=== PATIENT | male | born 1955 | race African-American/Black ===

== ENCOUNTER 2017-03-05 10:46 | Inpatient (IN) | payer OTHER ==
[2017-03-05 10:56] VITALS: BMI 22.9
--- NOTE | 2017-03-05 12:09 | HP ---
COWS - Scale Resting Pulse: 0= [place] 80 or Below Sweatin= Chills/Flushing Restless Observation: 1= Difficult to Sit Still Pupil Size: 0= Normal to Room Light Bone or Joint Aches: 1= Mild Discomfort Runny Nose/ Eye Tearin= Nasal Congestion GI Upset > 30mins: 1= Stomach Cramp Tremor Observation: 1= Tremor [place], Not Seen Yawning Observation: 1= 1-2x During Session Anxiety or Irritability: 1=Feels Anxious/Irritable Goose Flesh Skin: 0=Smooth Skin COWS Score: 8 Admission ROS S - HPI Chief Complaint: I want to get clean, I tried methadone but I didn't follow through and went back to heroin. Allergies/Adverse Reactions: Allergies Allergy/AdvReac Type Severity Reaction Status Date / Time No Known Allergies Allergy Verified 03/05/17 12:04 History of Present Illness: 61 yo gentleman here for detox from heroin. First time in detox. No seizures. States he used to use heroin 30 years ago then moved to [place] and stopped but came to [place] and relapsed. States he is a [place] survivor. Exam Limitations: Clinical Condition - Ebola screening Have you traveled outside of the country in the last 21 days: No Have you had contact with anyone from an Ebola affected area: No Have you been sick,other than usual withdrawal symptoms: No Do you have a fever: No - Review of Systems Constitutional: Chills, Loss of Appetite, Night Sweats, Changes in sleep, Weakness EENT: reports: Nose Congestion Respiratory: reports: No Symptoms reported Cardiac: reports: No Symptoms Reported GI: reports: Poor Appetite, Abdominal cramping : reports: Dysuria Integumentary: reports: No Symptoms Reported Neuro: reports: Headache Endocrine: reports: No Symptoms Reported Hematology: reports: No Symptoms Reported Psychiatric: reports: Judgement Intact, Mood/Affect Appropiate Other Systems: Reviewed and Negative Patient History - Patient Medical History Hx Anemia: No Hx Asthma: No Hx Chronic Obstructive Pulmonary Disease (COPD): Yes Hx Cancer: No Hx Cardiac Disorders: No Hx Congestive Heart Failure: No Hx Hypertension: Yes (on meds) HX Cerebrovascular Accident: No Hx Seizures: No Hx Dementia: No Hx Diabetes: No Hx Gastrointestinal Disorders: No Hx Liver Disease: No Hx Genitourinary Disorders: No Hx Sexually Transmitted Disorders: Yes (many years ago - got PCN) Hx Renal Disease (ESRD): No Hx Thyroid Disease: No Hx Human Immunodeficiency Virus (HIV): No Hx Hepatitis C: No (not sure - told he had it, then that he didn't have it) Hx Depression: Yes (no treatment, no hospitalizations) Hx Suicide Attempt: No Hx Bipolar Disorder: No Hx Schizophrenia: No Other Medical History: low back pain from work injury - Patient Surgical History Past Surgical History: No - PPD History Previous Implant?: Yes Documented Results: Negative w/o proof Implanted On Prior [facility] Admission?: No PPD to be Administered?: Yes - Reproductive History Patient is a Female of Child Bearing Age (11 -55 yrs old): No (male) - Smoking Cessation Smoking history: Current every day smoker Have you smoked in the past 12 months: Yes Aproximately how many cigarettes per day: 3 Initiated information on smoking cessation: Yes 'Breaking Loose' booklet given: 03/05/17 (give on floor) - Substance & Tx. History Hx Alcohol Use: No Hx Substance Use: Yes Substance Use Type: Heroin Hx Substance Use Treatment: Yes (detox, tried mmtp) - Substances Abused Heroin Route: Inhalation Frequency: Daily Amount used: 4 bags Age of first use: 16 Date of Last Use: 03/04/17 Family Disease History - Family Disease History Family Disease History: Heart Disease: Mother (alive), CA: Father ( - ) , Respiratory: Sister (3 sisters - one ), Other: Father, Mother, Brother (9 bro - 4 (cva,hiv,etoh),), Daughter (psychiatric PTSD) Admission Physical Exam [facility] - Vital Signs Vital Signs: Vital Signs - 24 hr 03/05/17 10:48 Temperature 96.4 F L Pulse Rate 71 Respiratory 18 Rate Blood Pressure 147/78 - Physical General Appearance: Yes: Nourished, Appropriately Dressed, Mild Distress, Thin, Anxious HEENTM: Yes: Hearing grossly Normal, Normocephalic, Normal Voice, Other ( missing teeth,poor dentition) Respiratory: Yes: No Respiratory Distress Neck: Yes: No masses,lesions,Nodules, Supple Breast: Yes: Breast Exam Deferred Cardiology: Yes: Regular Rhythm, Regular Rate Abdominal: Yes: Soft Genitourinary: Yes: Hesitency Back: Yes: Normal Inspection Musculoskeletal: Yes: full range of Motion, Gait Steady, Back pain Extremities: Yes: Normal Inspection, Normal Range of Motion Neurological: Yes: Fully Oriented, Alert, Normal Mood/Affect, Normal Response Integumentary: Yes: Normal Color, Warm, Track [place] Lymphatic: Yes: Within Normal Limits - Diagnostic (1) COPD (chronic obstructive pulmonary disease) Current Visit: Yes Status: Chronic Qualifiers: COPD type: emphysema Emphysema type: unspecified Qualified Code( s): J43.9 - Emphysema, unspecified (2) HTN (hypertension) Current Visit: Yes Status: Chronic Qualifiers: Hypertension type: essential hypertension Qualified Code(s): I10 - Essential (primary) hypertension (3) Low back pain Current Visit: Yes Status: Chronic Qualifiers: Chronicity: chronic Sciatica presence: unspecified whether sciatica present (4) Nicotine dependence Current Visit: Yes Status: Chronic Qualifiers: Nicotine product type: cigarettes Substance use status: uncomplicated Qualified Code(s): F17.210 - Nicotine dependence, cigarettes, uncomplicated (5) Syphilis contact, treated Current Visit: Yes Status: Chronic Comment: treated many years ago (6) Uncomplicated opioid dependence Current Visit: Yes Status: Chronic Cleared for Admission [facility] - Detox or Rehab [facility] Level of Care: Medically Managed Detox Regimen/Protocol: Methadone [facility] Breath Alcohol Content Breath Alcohol Content: 0 Urine Drug Screen - Results Drug Screen Negative: No Urine Drug Screen Results: OPI-Opiates
[2017-03-05] MEDS ORDERED: LOPERAMIDE HCL 2 MG CAPSULE PO PRN (12:19)
[2017-03-05] MEDS ORDERED: MAGNESIUM HYDROX 2400MG/30ML ORAL SUSPENSION 30 ML CUP PO PRN (12:19)
[2017-03-05] MEDS ORDERED: guaiFENesin/D-METHORPHAN HB 10 ML UNIT-DOSE CUPS PO PRN (12:19)
[2017-03-05] MEDS ORDERED: MAG HYDROX/AL HYDROX/SIMETH 30 ML UNIT-DOSE CUP PO PRN (12:19)
[2017-03-05] MEDS ORDERED: P-EPHED 60MG/TRIPROLIDI 2.5MG TABLET PO PRN (12:19)
[2017-03-05] MEDS ORDERED: MAGNESIUM CITRATE 300 ML BOTTLE PO PRN (12:19)
[2017-03-05] MEDS ORDERED: MENTHOL/PHENOL 1 EACH UD MM PRN (12:19)
[2017-03-05] MEDS ORDERED: ACETAMINOPHEN 325 MG TABLET (FP) PO PRN (12:19)
[2017-03-05] MEDS ORDERED: ALBUTEROL SO4 6.7 GM HFA INHALER IH PRN (12:21)
[2017-03-05] MEDS ORDERED: METHADONE HCL 10 MG TABLET (FOR DETOX USE ONLY) PO ONE ×2 (13:00→23:00)
[2017-03-05] MEDS: diazePAM 5 MG TABLET PO PRN ×2 (14:38→22:17)
[2017-03-05 18:38] LABS: URINE APPEARANCE CLEAR; URINE BILIRUBIN NEGATIVE (NEGATIVE); URINE BLOOD NEGATIVE (NEGATIVE); URINE COLOR LTYELLOW; URINE GLUCOSE (UA) NEGATIVE (NEGATIVE); URINE KETONE NEGATIVE (NEGATIVE); URINE LEUK ESTERASE NEGATIVE (NEGATIVE); URINE NITRITE NEGATIVE (NEGATIVE); URINE PROTEIN NEGATIVE (NEGATIVE); URINE UROBILINOGEN NEGATIVE E.U./dl (0.2-1.0)
[2017-03-05] MEDS: THIAMINE HCL 100 MG TABLET (FP) PO SCH (22:16)
[2017-03-05] MEDS: diphenhydrAMINE HCL 50 MG CAPSULE PO PRN (22:18)
[2017-03-06] MEDS: diazePAM 5 MG TABLET PO PRN ×3 (05:33→17:17)
[2017-03-06 09:23] LABS: MCH 31.4 pg (25.7-33.7); MCHC 33.9 g/dl (32.0-35.9); MEAN CELL VOLUME 92.6 fl (80-96); MEAN PLT VOLUME 9.5 fl (7.5-11.1); PLATELET COUNT 149 K/MM3 (134-434); RDW 13.7 % (11.9-15.9)
[2017-03-06 09:30] LABS: ALBUMIN 3.1 g/dl (3.4-5.0); ANION GAP 9 (8-16); CALCIUM 8.4 mg/dL (8.5-10.1); CO2 27 mmol/L (21-32); GLUCOSE,RANDOM 84 mg/dL (74-106)
[2017-03-06 09:35] LABS: ALK PHOS 117 U/L (45-117); BILIRUBIN,TOTAL 0.3 mg/dL (0.2-1.0); COCKROFT - GAULT 98.27; CREATININE 0.8 mg/dL (0.7-1.3); SGOT/AST 47 U/L (15-37); SGPT/ALT 47 U/L (12-78); TOT PROT 6.9 g/dl (6.4-8.2)
[2017-03-06 09:47] LABS: SICKLE CELL SCREEN NEGATIVE (NEGATIVE)
[2017-03-06] MEDS ORDERED: METHADONE HCL 10 MG TABLET (FOR DETOX USE ONLY) PO ONE (10:00)
[2017-03-06] MEDS: PRENATAL VITAMINS W/ FOLIC ACID TABLET (FP) PO SCH (10:09)
[2017-03-06] MEDS: NICOTINE 7 MG/24 HOURS TOPICAL PATCH TD SCH (10:09)
[2017-03-06] MEDS: NICOTINE POLACRILEX 2 MG GUM BC PRN ×2 (10:12→17:17)
[2017-03-06] MEDS: LISINOPRIL 10 MG TABLET (FP) PO SCH (10:12)
[2017-03-06 11:26] LABS: HIV 1 & 2 AB NEGATIVE; HIV 1 AGp24 NEGATIVE
--- NOTE | 2017-03-06 12:37 | PN ---
S COWS - Scale Resting Pulse: 0= [place] 80 or Below Sweatin=Flushed/Facial Moisture Restless Observation: 1= Difficult to Sit Still Pupil Size: 0= Normal to Room Light Bone or Joint Aches: 2= Severe Diffuse Aches Runny Nose/ Eye Tearin= Runny Nose/Eyes GI Upset > 30mins: 2= Nausea/Diarrhea Tremor Observation of Outstretched Hands: 2= Slight Tremor Visible Yawning Observation: 1= 1-2x During Session Anxiety or Irritability: 2=Irritable/Anxious Goose Flesh Skin: 0=Smooth Skin COWS Score: 14 S Progress Note (SOAP) Subjective: Anxiety,tremors,sweating,interrupted sleep,restless Objective: 03/06/17 12:36 Vital Signs - 8 hr 03/06/17 03/06/17 06:44 09:50 Temperature 95.2 F L 97.1 F L Pulse Rate 75 73 Respiratory 18 18 Rate Blood Pressure 132/78 152/82 Laboratory Tests 03/05/17 03/06/17 03/06/17 18:10 07:30 07:30 WBC 5.0 RBC 3.94 L Hgb 12.4 Hct 36.5 MCV 92.6 MCHC 33.9 RDW 13.7 Plt Count 149 MPV 9.5 Sickle Cell Screen Negative Sodium 141 Potassium 3.9 Chloride 105 Carbon Dioxide 27 Anion Gap 9 BUN 7 Creatinine 0.8 Creat Clearance w eGFR > 60 Random Glucose 84 Calcium 8.4 L Total Bilirubin 0.3 AST 47 H ALT 47 Alkaline Phosphatase 117 Total Protein 6.9 Albumin 3.1 L Urine Color Ltyellow Urine Appearance Clear Urine pH 5.0 Ur Specific [place] 1.014 Urine Protein Negative Urine Glucose (UA) Negative Urine Ketones Negative Urine Blood Negative Urine Nitrite Negative Urine Bilirubin Negative Urine Urobilinogen Negative Ur Leukocyte Esterase Negative RPR Titer HIV 1&2 Antibody Screen HIV P24 Antigen 03/06/17 03/06/17 07:30 07:30 WBC RBC Hgb Hct MCV MCHC RDW Plt Count MPV Sickle Cell Screen Sodium Potassium Chloride Carbon Dioxide Anion Gap BUN Creatinine Creat Clearance w eGFR Random Glucose Calcium Total Bilirubin AST ALT Alkaline Phosphatase Total Protein Albumin Urine Color Urine Appearance Urine pH Ur Specific [place] Urine Protein Urine Glucose (UA) Urine Ketones Urine Blood Urine Nitrite Urine Bilirubin Urine Urobilinogen Ur Leukocyte Esterase RPR Titer Nonreactive HIV 1&2 Antibody Screen Negative HIV P24 Antigen Negative labs noted Assessment: 03/06/17 12:36 Withdrawal sx. Plan: Continue detox
--- NOTE | 2017-03-06 17:17 | EKG ---
Test Reason : Blood Pressure : / mmHG Vent. Rate : 066 BPM Atrial Rate : 066 BPM P-R Int : 152 ms QRS Dur : 094 ms QT Int : 400 ms P-R-T Axes : 070 054 051 degrees QTc Int : 419 ms NORMAL SINUS RHYTHM MINIMAL VOLTAGE CRITERIA FOR LVH, MAY BE NORMAL VARIANT BORDERLINE ECG NO PREVIOUS ECGS AVAILABLE Confirmed by DEEPTI FELDER MD ([id number]) on 03/06/2017 5:17:25 PM Referred By: Confirmed By:DEEPTI FELDER MD
[2017-03-06] MEDS: THIAMINE HCL 100 MG TABLET (FP) PO SCH (22:19)
[2017-03-06] MEDS: diphenhydrAMINE HCL 50 MG CAPSULE PO PRN (22:19)
[2017-03-07] MEDS: IBUPROFEN 400 MG TABLET (FP) PO PRN (05:48)
[2017-03-07] MEDS: diazePAM 5 MG TABLET PO PRN ×2 (05:49→10:40)
--- NOTE | 2017-03-07 09:59 | CONSULT ---
[facility] Psychiatric Consult - Data Date of interview: 03/07/17 Admission source: [facility] Identifying data: This is 61 years old male with no psychiatric hospitalization history ijntoxciated with : Opioids, Nicotine Substance Abuse History: - Smoking Cessation. Smoking history: Current every day smoker. Have you smoked in the past 12 months: Yes. Aproximately how many cigarettes per day: 3. Initiated information on smoking cessation: Yes. ' Breaking Loose' booklet given: 03/05/17 (give on floor). - Substance & Tx. History. Hx Alcohol Use: No. Hx Substance Use: Yes. Substance Use Type: Heroin. Hx Substance Use Treatment: Yes (detox, tried mmtp). - Substances Abused. Heroin. Route: Inhalation. Frequency: Daily. Amount used: 4 bags. Age of first use: 16. Date of Last Use: 03/04/17 Medical History: COIPD, HTN, LBP, Syphilis history Psychiatric History: Denies Physical/Sexual Abuse/Trauma History: Denies Additional Comment: Observation. Detox [facility] Protocol Mental Status Exam - Mental Status Exam Alert and Oriented to: Person Cognitive Function: Fair Patient Appearance: Unkempt Mood: Sad Affect: Flat Patient Behavior: Sedated Speech Pattern: Delayed Voice Loudness: Mildly Soft/Quiet Thought Process: Circumstantial Thought Disorder: Being Controlled Hallucinations: Denies Suicidal Ideation: Denies Homicidal Ideation: Denies Insight/Judgement: Fair Sleep: Difficulty falling asleep Appetite: Weight loss Muscle strength/Tone: Mild Hypotonicity Gait/Station: Shuffling Additional Comments: Observation. Detox [facility] Protocol Psychiatric Findings - Problem List ([place] 1, 2,3) (1) Nicotine dependence Current Visit: Yes Status: Chronic Qualifiers: Nicotine product type: cigarettes Substance use status: uncomplicated Qualified Code(s): F17.210 - Nicotine dependence, cigarettes, uncomplicated (2) Uncomplicated opioid dependence Current Visit: Yes Status: Chronic (3) Drug-induced mood disorder Current Visit: Yes Status: Suspected - Initial Treatment Plan Initial Treatment Plan: Observation. Detox [facility] Protocol
[2017-03-07] MEDS ORDERED: METHADONE HCL 5 MG TABLET (FOR DETOX USE ONLY) PO ONE (10:00)
[2017-03-07] MEDS: PRENATAL VITAMINS W/ FOLIC ACID TABLET (FP) PO SCH (10:40)
[2017-03-07] MEDS: NICOTINE 7 MG/24 HOURS TOPICAL PATCH TD SCH (10:41)
[2017-03-07] MEDS: LISINOPRIL 10 MG TABLET (FP) PO SCH (10:41)
--- NOTE | 2017-03-07 15:26 | PN ---
BHS COWS - Scale Resting Pulse: 1= [place] 81-100 Sweatin=Flushed/Facial Moisture Restless Observation: 1= Difficult to Sit Still Pupil Size: 0= Normal to Room Light Bone or Joint Aches: 2= Severe Diffuse Aches Runny Nose/ Eye Tearin= Runny Nose/Eyes GI Upset > 30mins: 2= Nausea/Diarrhea Tremor Observation of Outstretched Hands: 2= Slight Tremor Visible Yawning Observation: 1= 1-2x During Session Anxiety or Irritability: 2=Irritable/Anxious Goose Flesh Skin: 0=Smooth Skin COWS Score: 15 BHS Progress Note (SOAP) Subjective: Anxiety,tremors,sweating,interrupted sleep,restless Objective: 03/07/17 15:25 Last Vital Signs Temp Pulse Resp BP Pulse Ox 95.5 F L 87 18 148/81 03/07/17 10:00 03/07/17 10:00 03/07/17 10:00 03/07/17 10:00 Laboratory Last Values WBC 5.0 K/mm3 (4.0-10.0) 03/06/17 07:30 RBC 3.94 M/mm3 (4.00-5.60) L 03/06/17 07:30 Hgb 12.4 GM/dL (11.7-16.9) 03/06/17 07:30 Hct 36.5 % (35.4-49) 03/06/17 07:30 MCV 92.6 fl (80-96) 03/06/17 07:30 MCHC 33.9 g/dl (32.0-35.9) 03/06/17 07:30 RDW 13.7 % (11.9-15.9) 03/06/17 07:30 Plt Count 149 K/MM3 (134-434) 03/06/17 07:30 MPV 9.5 fl (7.5-11.1) 03/06/17 07:30 Sickle Cell Screen Negative (NEGATIVE) 03/06/17 07:30 Sodium 141 mmol/L (136-145) 03/06/17 07:30 Potassium 3.9 mmol/L (3.5-5.1) 03/06/17 07:30 Chloride 105 mmol/L (98-107) 03/06/17 07:30 Carbon Dioxide 27 mmol/L (21-32) 03/06/17 07:30 Anion Gap 9 (8-16) 03/06/17 07:30 BUN 7 mg/dL (7-18) 03/06/17 07:30 Creatinine 0.8 mg/dL (0.7-1.3) 03/06/17 07:30 Creat Clearance w eGFR > 60 (>60) 03/06/17 07:30 Random Glucose 84 mg/dL (74-106) 03/06/17 07:30 Calcium 8.4 mg/dL (8.5-10.1) L 03/06/17 07:30 Total Bilirubin 0.3 mg/dL (0.2-1.0) 03/06/17 07:30 AST 47 U/L (15-37) H 03/06/17 07:30 ALT 47 U/L (12-78) 03/06/17 07:30 Alkaline Phosphatase 117 U/L (45-117) 03/06/17 07:30 Total Protein 6.9 g/dl (6.4-8.2) 03/06/17 07:30 Albumin 3.1 g/dl (3.4-5.0) L 03/06/17 07:30 Urine Color Ltyellow 03/05/17 18:10 Urine Appearance Clear 03/05/17 18:10 Urine pH 5.0 (5.0-8.0) 03/05/17 18:10 Ur Specific [place] 1.014 (1.001-1.035) 03/05/17 18:10 Urine Protein Negative (NEGATIVE) 03/05/17 18:10 Urine Glucose (UA) Negative (NEGATIVE) 03/05/17 18:10 Urine Ketones Negative (NEGATIVE) 03/05/17 18:10 Urine Blood Negative (NEGATIVE) 03/05/17 18:10 Urine Nitrite Negative (NEGATIVE) 03/05/17 18:10 Urine Bilirubin Negative (NEGATIVE) 03/05/17 18:10 Urine Urobilinogen Negative E.U./dl (0.2-1.0) 03/05/17 18:10 Ur Leukocyte Esterase Negative (NEGATIVE) 03/05/17 18:10 RPR Titer Nonreactive (NONREACTIVE) 03/06/17 07:30 HIV 1&2 Antibody Screen Negative 03/06/17 07:30 HIV P24 Antigen Negative 03/06/17 07:30 labs noted Assessment: 03/07/17 15:26 Withdrawal sx. Plan: Continue detox
[2017-03-07] MEDS: THIAMINE HCL 100 MG TABLET (FP) PO SCH (22:24)
[2017-03-07] MEDS: diphenhydrAMINE HCL 50 MG CAPSULE PO PRN (22:25)
[2017-03-08] MEDS: IBUPROFEN 400 MG TABLET (FP) PO PRN (06:08)
[2017-03-08] MEDS: diazePAM 5 MG TABLET PO PRN (06:08)
[2017-03-08] MEDS ORDERED: METHADONE HCL 5 MG TABLET (FOR DETOX USE ONLY) PO ONE (10:00)
--- NOTE | 2017-03-08 10:11 | PN ---
BHS Progress Note (SOAP) Subjective: ANXIETY,SWEATS,FATIGUE. Objective: 03/08/17 10:10 Vital Signs Temperature 96.5 F L 03/08/17 06:52 Pulse Rate 79 03/08/17 06:52 Respiratory Rate 18 03/08/17 06:52 Blood Pressure 158/85 03/08/17 06:52 O2 Sat by Pulse Oximetry (%) Assessment: 03/08/17 10:10 WITHDRAWALS SX Plan: CONTINUE DETOX
[2017-03-08] MEDS: PRENATAL VITAMINS W/ FOLIC ACID TABLET (FP) PO SCH (10:33)
[2017-03-08] MEDS: NICOTINE 7 MG/24 HOURS TOPICAL PATCH TD SCH (10:33)
[2017-03-08] MEDS: LISINOPRIL 10 MG TABLET (FP) PO SCH (10:33)
[2017-03-08] MEDS: NICOTINE POLACRILEX 2 MG GUM BC PRN (21:24)
[2017-03-08] MEDS: THIAMINE HCL 100 MG TABLET (FP) PO SCH (22:37)
[2017-03-08] MEDS: diphenhydrAMINE HCL 50 MG CAPSULE PO PRN (22:37)
[2017-03-09] MEDS: IBUPROFEN 400 MG TABLET (FP) PO PRN (05:34)
[2017-03-09] MEDS: hydrOXYzine PAMOATE 25 MG CAPSULE (FP) PO PRN ×2 (05:34→10:23)
[2017-03-09] MEDS ORDERED: METHADONE HCL 10 MG TABLET (FOR DETOX USE ONLY) PO ONE (10:00)
[2017-03-09] MEDS: PRENATAL VITAMINS W/ FOLIC ACID TABLET (FP) PO SCH (10:21)
[2017-03-09] MEDS: LISINOPRIL 10 MG TABLET (FP) PO SCH (10:22)
[2017-03-09] MEDS: NICOTINE 7 MG/24 HOURS TOPICAL PATCH TD SCH (10:22)
[2017-03-09] MEDS: NICOTINE POLACRILEX 2 MG GUM BC PRN ×2 (10:23→17:33)
--- NOTE | 2017-03-09 11:55 | PN ---
BHS Progress Note (SOAP) Subjective: ANXIETY,FATIGUE,KNEE PAIN. Objective: 03/09/17 11:54 Vital Signs Temperature 97.4 F L 03/09/17 10:21 Pulse Rate 84 03/09/17 10:21 Respiratory Rate 18 03/09/17 10:21 Blood Pressure 141/80 03/09/17 10:21 O2 Sat by Pulse Oximetry (%) Assessment: 03/09/17 11:54 WITHDRAWAL SX CHRONIC KNEE PAIN Plan: CONTINUE DETOX MOTRIN PRN FLEXERIL
[2017-03-09] MEDS: CYCLOBENZAPRINE HCL 10 MG TABLET (FP) PO SCH ×2 (13:20→22:34)
[2017-03-09] MEDS: THIAMINE HCL 100 MG TABLET (FP) PO SCH (22:34)
[2017-03-09] MEDS: diphenhydrAMINE HCL 50 MG CAPSULE PO PRN (22:34)
[2017-03-10] MEDS ORDERED: DOCUSATE SODIUM 100 MG CAPSULE (FP) PO ONE (02:03)
[2017-03-10] MEDS ORDERED: SIMETHICONE 80 MG TAB.CHEW (FP) PO PRN (02:06)
[2017-03-10] MEDS ORDERED: METHADONE HCL 5 MG TABLET (FOR DETOX USE ONLY) PO ONE (06:00)
[2017-03-10] MEDS: CYCLOBENZAPRINE HCL 10 MG TABLET (FP) PO SCH (06:03)
[2017-03-10 06:36] VITALS: BP 152/95; PULSE 89; TEMP 95.1
--- NOTE | 2017-03-10 09:17 | DS ---
[facility] Detox Discharge Summary Admission Date: 03/05/17 Discharge Date: 03/10/17 - History Present History: Opioid Dependence Additional Comments: DETOX COMPLETED.ALERT O X 3. NAD. PT TO F/U WITH PMD AT [facility] FOR MEDICAL MANAGEMENT OF COMORBID CONDITIONS. PT IS VERY POOR IN MEDICAL HX NARRATIVE AND HAS POOR MEMORY OF PERSONAL MEDICAL FACTS. NOT SURE WHICH BP MED HE WAS TAKING BUT RECIEVED LISINOPRIL FOR HIGH BP HERE AND RX LISINOPRIL 10 MG PO DAILY #30 GIVEN TILL HE CAN GET TO HIS PMD. INSTRUCTED PT TO TAKE RX TO HIS PMD. Pertinent Past History: HTN COPD CHRONIC LBP - Physical Exam Results Vital Signs: Vital Signs Temperature 95.1 F L 03/10/17 06:36 Pulse Rate 89 03/10/17 06:36 Respiratory Rate 18 03/10/17 06:36 Blood Pressure 152/95 03/10/17 06:36 O2 Sat by Pulse Oximetry (%) Pertinent Admission Physical Exam Findings: WITHDRAWAL SX Laboratory Last Values WBC 5.0 K/mm3 (4.0-10.0) 03/06/17 07:30 RBC 3.94 M/mm3 (4.00-5.60) L 03/06/17 07:30 Hgb 12.4 GM/dL (11.7-16.9) 03/06/17 07:30 Hct 36.5 % (35.4-49) 03/06/17 07:30 MCV 92.6 fl (80-96) 03/06/17 07:30 MCHC 33.9 g/dl (32.0-35.9) 03/06/17 07:30 RDW 13.7 % (11.9-15.9) 03/06/17 07:30 Plt Count 149 K/MM3 (134-434) 03/06/17 07:30 MPV 9.5 fl (7.5-11.1) 03/06/17 07:30 Sickle Cell Screen Negative (NEGATIVE) 03/06/17 07:30 Sodium 141 mmol/L (136-145) 03/06/17 07:30 Potassium 3.9 mmol/L (3.5-5.1) 03/06/17 07:30 Chloride 105 mmol/L (98-107) 03/06/17 07:30 Carbon Dioxide 27 mmol/L (21-32) 03/06/17 07:30 Anion Gap 9 (8-16) 03/06/17 07:30 BUN 7 mg/dL (7-18) 03/06/17 07:30 Creatinine 0.8 mg/dL (0.7-1.3) 03/06/17 07:30 Creat Clearance w eGFR > 60 (>60) 03/06/17 07:30 Random Glucose 84 mg/dL (74-106) 03/06/17 07:30 Calcium 8.4 mg/dL (8.5-10.1) L 03/06/17 07:30 Total Bilirubin 0.3 mg/dL (0.2-1.0) 03/06/17 07:30 AST 47 U/L (15-37) H 03/06/17 07:30 ALT 47 U/L (12-78) 03/06/17 07:30 Alkaline Phosphatase 117 U/L (45-117) 03/06/17 07:30 Total Protein 6.9 g/dl (6.4-8.2) 03/06/17 07:30 Albumin 3.1 g/dl (3.4-5.0) L 03/06/17 07:30 Urine Color Ltyellow 03/05/17 18:10 Urine Appearance Clear 03/05/17 18:10 Urine pH 5.0 (5.0-8.0) 03/05/17 18:10 Ur Specific [place] 1.014 (1.001-1.035) 03/05/17 18:10 Urine Protein Negative (NEGATIVE) 03/05/17 18:10 Urine Glucose (UA) Negative (NEGATIVE) 03/05/17 18:10 Urine Ketones Negative (NEGATIVE) 03/05/17 18:10 Urine Blood Negative (NEGATIVE) 03/05/17 18:10 Urine Nitrite Negative (NEGATIVE) 03/05/17 18:10 Urine Bilirubin Negative (NEGATIVE) 03/05/17 18:10 Urine Urobilinogen Negative E.U./dl (0.2-1.0) 03/05/17 18:10 Ur Leukocyte Esterase Negative (NEGATIVE) 03/05/17 18:10 RPR Titer Nonreactive (NONREACTIVE) 03/06/17 07:30 Hepatitis C Antibody >11.0 s/co ratio (0.0-0.9) H 03/06/17 07:30 HIV 1&2 Antibody Screen Negative 03/06/17 07:30 HIV P24 Antigen Negative 03/06/17 07:30 PT IS A POOR HISTORIAN. SAYS HE MIGHT HAVE HAD HEP C BUT NOT SURE. - Treatment Hospital Course: Detox Protocol Followed, Detoxed Safely, Responded well, Discharged Condition Good - Medication Discharge Medications: Ambulatory Orders Albuterol Sulfate Inhaler - [Ventolin Hfa Inhaler -] 2 inh PO Q4H PRN 03/05/17 Lisinopril [Prinivil] 10 mg PO DAILY #30 mg 03/10/17 - Diagnosis (1) COPD (chronic obstructive pulmonary disease) Current Visit: Yes Status: Chronic Qualifiers: COPD type: emphysema Emphysema type: unspecified Qualified Code( s): J43.9 - Emphysema, unspecified (2) HTN (hypertension) Current Visit: Yes Status: Chronic Qualifiers: Hypertension type: essential hypertension Qualified Code(s): I10 - Essential (primary) hypertension (3) Low back pain Current Visit: Yes Status: Chronic Qualifiers: Chronicity: chronic Sciatica presence: unspecified whether sciatica present (4) Nicotine dependence Current Visit: Yes Status: Acute Qualifiers: Nicotine product type: cigarettes Substance use status: in withdrawal Qualified Code(s): F17.213 - Nicotine dependence, cigarettes, with withdrawal (5) Uncomplicated opioid dependence Current Visit: Yes Status: Acute - AMA Did Patient Leave Against Medical Advice: No
[2017-03-10] MEDS: NICOTINE 7 MG/24 HOURS TOPICAL PATCH TD SCH (11:30)
[2017-03-10] MEDS: PRENATAL VITAMINS W/ FOLIC ACID TABLET (FP) PO SCH (11:31)
[2017-03-10] MEDS: LISINOPRIL 10 MG TABLET (FP) PO SCH (11:31)
[2017-03-11 14:18] LABS: HCV LOG 10 7.165 (.); HCV RNA IU/ML 14609000 IU/mL (.)
== END 2017-03-10 10:00 | disposition home or self-care (01) | DRG 773 ==
LOC: YASAS 10:46 → Y3N 12:36
PROVIDERS: ADMIT Internal Medicine; ATTEND Internal Medicine
PROC: HZ2ZZZZ Detoxification Services for Substance Abuse Treatment (ICD-10-PCS; principal; 2017-03-10)
DX: F11.20 Opioid dependence, uncomplicated (principal); F17.210 Nicotine dependence, cigarettes, uncomplicated; F19.24 Other psychoactive substance dependence with psychoactive substance-induced mood disorder; I10 Essential (primary) hypertension; J43.9 Emphysema, unspecified; M54.5 Low back pain; G89.29 Other chronic pain; Z20.2 Contact with and (suspected) exposure to infections with a predominantly sexual mode of transmission
CPT/HCPCS: 36415; 80053; 81003; 85027; 85660; 86593; 87389; 87522; 93005; 93010

== ENCOUNTER 2017-05-05 08:11 | Inpatient (IN) | payer OTHER ==
[2017-05-05 09:10] VITALS: BMI 21.8
[2017-05-05] MEDS ORDERED: guaiFENesin/D-METHORPHAN HB 10 ML UNIT-DOSE CUPS PO PRN (11:23)
[2017-05-05] MEDS ORDERED: MAGNESIUM HYDROX 2400MG/30ML ORAL SUSPENSION 30 ML CUP PO PRN (11:23)
[2017-05-05] MEDS ORDERED: IBUPROFEN 400 MG TABLET (FP) PO PRN (11:23)
[2017-05-05] MEDS ORDERED: NICOTINE POLACRILEX 2 MG GUM BUC PRN (11:23)
[2017-05-05] MEDS ORDERED: MENTHOL/PHENOL 1 EACH UD MM PRN (11:23)
[2017-05-05] MEDS ORDERED: MAG HYDROX/AL HYDROX/SIMETH 30 ML UNIT-DOSE CUP PO PRN (11:23)
[2017-05-05] MEDS ORDERED: ACETAMINOPHEN 325 MG TABLET (FP) PO PRN (11:23)
[2017-05-05] MEDS ORDERED: hydrOXYzine PAMOATE 50 MG CAPSULE (FP) PO PRN (11:23)
[2017-05-05] MEDS ORDERED: MAGNESIUM CITRATE 300 ML BOTTLE PO PRN (11:23)
[2017-05-05] MEDS ORDERED: LOPERAMIDE HCL 2 MG CAPSULE PO PRN (11:23)
[2017-05-05] MEDS ORDERED: P-EPHED 60MG/TRIPROLIDI 2.5MG TABLET PO PRN (11:23)
[2017-05-05] MEDS ORDERED: ALBUTEROL SO4 6.7 GM HFA INHALER IH PRN (11:26)
--- NOTE | 2017-05-05 11:33 | HP ---
COWS - Scale Resting Pulse: 0= [place] 80 or Below Sweatin=Flushed/Facial Moisture Restless Observation: 1= Difficult to Sit Still Pupil Size: 2= Moderately Dilated Bone or Joint Aches: 2= Severe Diffuse Aches Runny Nose/ Eye Tearin= Runny Nose/Eyes GI Upset > 30mins: 2= Nausea/Diarrhea Tremor Observation: 2= Slight Tremor Visible Yawning Observation: 2= >3x During Session Anxiety or Irritability: 2=Irritable/Anxious Goose Flesh Skin: 0=Smooth Skin COWS Score: 17 Admission ROS S - HPI Chief Complaint: Withdrawal sx Allergies/Adverse Reactions: Allergies Allergy/AdvReac Type Severity Reaction Status Date / Time No Known Allergies Allergy Verified 05/05/17 09:20 History of Present Illness: 61 y/o man with a long hx. of heroin dependence is admitted for detox.pt. has been in previous detox,denies significant period drug free. Exam Limitations: No Limitations - Ebola screening Have you traveled outside of the country in the last 21 days: No Have you had contact with anyone from an Ebola affected area: No Have you been sick,other than usual withdrawal symptoms: No - Review of Systems Constitutional: Diaphoresis EENT: reports: Nose Congestion Respiratory: reports: Wheezing (off & on because of asthma) Cardiac: reports: No Symptoms Reported GI: reports: Diarrhea, Nausea, Abdominal cramping : reports: No Symptoms Reported Musculoskeletal: reports: Back Pain, Joint Pain, Muscle Pain Integumentary: reports: Sweating Neuro: reports: Headache, Tremors Endocrine: reports: No Symptoms Reported Hematology: reports: No Symptoms Reported Psychiatric: reports: No Sypmtoms Reported Other Systems: Reviewed and Negative Patient History - Patient Medical History Hx Anemia: No Hx Asthma: No Hx Chronic Obstructive Pulmonary Disease (COPD): Yes Hx Cancer: No Hx Cardiac Disorders: No Hx Congestive Heart Failure: No Hx Hypertension: Yes Hx Hypercholesterolemia: No Hx Pacemaker: No HX Cerebrovascular Accident: No Hx Seizures: No Hx Dementia: No Hx Diabetes: No Hx Gastrointestinal Disorders: No Hx Liver Disease: No Hx Genitourinary Disorders: No Hx Sexually Transmitted Disorders: No Hx Renal Disease (ESRD): No Hx Thyroid Disease: No Hx Human Immunodeficiency Virus (HIV): No Hx Hepatitis C: Yes (Reperred to the [facility] for treatment) Hx Depression: No Hx Suicide Attempt: No Hx Bipolar Disorder: No Hx Schizophrenia: No - Patient Surgical History Past Surgical History: No Hx Neurologic Surgery: No Hx Cataract Extraction: No Hx Cardiac Surgery: No Hx Lung Surgery: No Hx Breast Surgery: No Hx Breast Biopsy: No Hx Abdominal Surgery: No Hx Appendectomy: No Hx Cholecystectomy: No Hx Genitourinary Surgery: No Hx Section: No Hx Orthopedic Surgery: No Anesthesia Reaction: No - PPD History Previous Implant?: Yes Documented Results: Negative w/proof Implanted On Prior [facility] Admission?: Yes Date: 03/07/17 Results: 0mm PPD to be Administered?: No - Smoking Cessation Smoking history: Current every day smoker Have you smoked in the past 12 months: Yes Aproximately how many cigarettes per day: 3 Hx Chewing Tobacco Use: No Initiated information on smoking cessation: Yes 'Breaking Loose' booklet given: 05/05/17 - Substance & Tx. History Hx Alcohol Use: No Hx Substance Use: Yes Substance Use Type: Heroin, Marijuana Hx Substance Use Treatment: Yes (Detox at [facility] 02/2017) - Substances Abused Heroin Route: Injection Frequency: Daily Amount used: 5 bags Age of first use: 59 Date of Last Use: 05/04/17 Family Disease History - Family Disease History Family Disease History: Heart Disease: Mother (alive), [place]: Father ( - ) , Respiratory: Sister (3 sisters - one ), Other: Father, Mother, Brother (9 bro - 4 (cva,hiv,etoh),), Daughter (psychiatric PTSD) Admission Physical Exam BHS - Vital Signs Vital Signs: Vital Signs - 24 hr 05/05/17 09:05 Temperature 96.4 F L Pulse Rate 63 Respiratory 18 Rate Blood Pressure 185/96 - Physical General Appearance: Yes: Irritable, Sweating, Anxious HEENTM: Yes: Nasal Congestion, Rhinorrhea Respiratory: Yes: Chest Non-Tender, Lungs Clear, Normal Breath Sounds Neck: Yes: Supple Breast: Yes: Breast Exam Deferred Cardiology: Yes: Regular Rhythm, Regular Rate, S1, S2 Abdominal: Yes: Normal Bowel Sounds, Non Tender, Flat, Soft Genitourinary: Yes: Within Normal Limits Back: Yes: Within Normal Limits Musculoskeletal: Yes: Within Normal Limits Extremities: Yes: Tremors Neurological: Yes: Fully Oriented, Alert Integumentary: Yes: Diaphoresis Lymphatic: Yes: Within Normal Limits - Diagnostic (1) COPD (chronic obstructive pulmonary disease) Current Visit: Yes Status: Chronic Qualifiers: COPD type: emphysema Emphysema type: unspecified Qualified Code( s): J43.9 - Emphysema, unspecified (2) HTN (hypertension) Current Visit: Yes Status: Chronic Qualifiers: Hypertension type: essential hypertension Qualified Code(s): I10 - Essential (primary) hypertension (3) Low back pain Current Visit: Yes Status: Chronic Qualifiers: Chronicity: chronic Sciatica presence: unspecified whether sciatica present (4) Opioid dependence with withdrawal Current Visit: Yes Status: Acute Cleared for Admission [facility] - Detox or Rehab [facility] Level of Care: Medically Managed Detox Regimen/Protocol: Methadone [facility] Breath Alcohol Content Breath Alcohol Content: 0 Urine Drug Screen - Results Drug Screen Negative: No Urine Drug Screen Results: THC-Marijuana, OPI-Opiates
[2017-05-05] MEDS ORDERED: METHADONE HCL 10 MG TABLET (FOR DETOX USE ONLY) PO ONE ×2 (11:45→23:00)
[2017-05-05] MEDS: diazePAM 5 MG TABLET PO PRN ×2 (12:59→22:36)
[2017-05-05] MEDS: LISINOPRIL 10 MG TABLET (FP) PO SCH ×2 (12:59→22:34)
[2017-05-05] MEDS: NICOTINE 7 MG/24 HOURS TOPICAL PATCH TD SCH (13:00)
--- NOTE | 2017-05-05 15:19 | EKG ---
Test Reason : Blood Pressure : / mmHG Vent. Rate : 060 BPM Atrial Rate : 073 BPM P-R Int : 152 ms QRS Dur : 088 ms QT Int : 432 ms P-R-T Axes : 058 047 050 degrees QTc Int : 432 ms NORMAL SINUS RHYTHM MODERATE VOLTAGE CRITERIA FOR LVH, MAY BE NORMAL VARIANT CANNOT RULE OUT SEPTAL INFARCT , AGE UNDETERMINED ABNORMAL ECG WHEN COMPARED WITH ECG OF 05-MAR-2017 13:51, NO SIGNIFICANT CHANGE WAS FOUND Confirmed by FLOWER MONGE MD ([id number]) on 05/05/2017 3:18:48 PM Referred By: Confirmed By:FLOWER MONGE MD
[2017-05-05 16:41] LABS: URINE APPEARANCE CLEAR; URINE BILIRUBIN NEGATIVE (NEGATIVE); URINE BLOOD NEGATIVE (NEGATIVE); URINE COLOR YELLOW; URINE GLUCOSE (UA) NEGATIVE (NEGATIVE); URINE KETONE NEGATIVE (NEGATIVE); URINE LEUK ESTERASE NEGATIVE (NEGATIVE); URINE NITRITE NEGATIVE (NEGATIVE); URINE PROTEIN NEGATIVE (NEGATIVE); URINE UROBILINOGEN NEGATIVE E.U./dl (0.2-1.0)
[2017-05-05] MEDS: THIAMINE HCL 100 MG TABLET (FP) PO SCH (22:34)
[2017-05-05] MEDS: diphenhydrAMINE HCL 50 MG CAPSULE PO PRN (22:35)
[2017-05-06] MEDS: diazePAM 5 MG TABLET PO PRN ×2 (06:02→10:38)
[2017-05-06 09:59] LABS: MCH 31.1 pg (25.7-33.7); MCHC 33.4 g/dl (32.0-35.9); MEAN PLT VOLUME 11.9 fl (7.5-11.1); PLATELET COUNT 161 K/MM3 (134-434); RDW 13.9 % (11.9-15.9)
[2017-05-06] MEDS ORDERED: METHADONE HCL 10 MG TABLET (FOR DETOX USE ONLY) PO ONE (10:00)
--- NOTE | 2017-05-06 10:12 | PN ---
BHS COWS - Scale Resting Pulse: 0= [place] 80 or Below Sweatin=Flushed/Facial Moisture Restless Observation: 1= Difficult to Sit Still Pupil Size: 0= Normal to Room Light Bone or Joint Aches: 2= Severe Diffuse Aches Runny Nose/ Eye Tearin= Runny Nose/Eyes GI Upset > 30mins: 2= Nausea/Diarrhea Tremor Observation of Outstretched Hands: 2= Slight Tremor Visible Yawning Observation: 1= 1-2x During Session Anxiety or Irritability: 2=Irritable/Anxious Goose Flesh Skin: 0=Smooth Skin COWS Score: 14 BHS Progress Note (SOAP) Subjective: Sweating,interrupted sleep,anxiety,tremors,restless. Objective: 05/06/17 10:10 Vital Signs - 8 hr 05/06/17 05/06/17 03:30 06:30 Temperature 97.2 F L Pulse Rate 76 Respiratory 18 18 Rate Blood Pressure 154/83 Laboratory Results - last 24 hr 05/05/17 05/06/17 14:50 06:00 WBC 5.0 RBC 4.46 Hgb 13.9 D Hct 41.5 MCV 93.0 MCHC 33.4 RDW 13.9 Plt Count 161 MPV 11.9 H D Urine Color Yellow Urine Appearance Clear Urine pH 7.0 D Ur Specific [place] 1.020 Urine Protein Negative Urine Glucose (UA) Negative Urine Ketones Negative Urine Blood Negative Urine Nitrite Negative Urine Bilirubin Negative Urine Urobilinogen Negative Ur Leukocyte Esterase Negative labs noted Assessment: 05/06/17 10:11 Withdrawal sx. Plan: Continue detox
[2017-05-06 10:34] LABS: ALBUMIN 3.9 g/dl (3.4-5.0); ALK PHOS 107 U/L (45-117); ANION GAP 6 (8-16); BILIRUBIN,TOTAL 0.5 mg/dL (0.2-1.0); CALCIUM 9.5 mg/dL (8.5-10.1); CO2 29 mmol/L (21-32); COCKROFT - GAULT 93.36; CREATININE 0.8 mg/dL (0.7-1.3); GLUCOSE,RANDOM 129 mg/dL (74-106); SGOT/AST 37 U/L (15-37); SGPT/ALT 36 U/L (12-78); TOT PROT 8.4 g/dl (6.4-8.2)
[2017-05-06] MEDS: NICOTINE 7 MG/24 HOURS TOPICAL PATCH TD SCH (10:38)
[2017-05-06] MEDS: LISINOPRIL 10 MG TABLET (FP) PO SCH ×2 (10:38→22:14)
[2017-05-06] MEDS: PRENATAL VITAMINS W/ FOLIC ACID TABLET (FP) PO SCH (10:38)
[2017-05-06] MEDS: diphenhydrAMINE HCL 50 MG CAPSULE PO PRN (22:14)
[2017-05-06] MEDS: THIAMINE HCL 100 MG TABLET (FP) PO SCH (22:14)
[2017-05-07] MEDS: diazePAM 5 MG TABLET PO PRN ×4 (05:45→22:22)
[2017-05-07] MEDS ORDERED: METHADONE HCL 5 MG TABLET (FOR DETOX USE ONLY) PO ONE (10:00)
[2017-05-07] MEDS: NICOTINE 7 MG/24 HOURS TOPICAL PATCH TD SCH (10:31)
[2017-05-07] MEDS: PRENATAL VITAMINS W/ FOLIC ACID TABLET (FP) PO SCH (10:31)
[2017-05-07] MEDS: LISINOPRIL 10 MG TABLET (FP) PO SCH ×2 (10:31→22:22)
--- NOTE | 2017-05-07 20:15 | PN ---
BHS COWS - Scale Resting Pulse: 0= [place] 80 or Below Sweatin= Chills/Flushing Restless Observation: 1= Difficult to Sit Still Pupil Size: 0= Normal to Room Light Bone or Joint Aches: 2= Severe Diffuse Aches Runny Nose/ Eye Tearin= Runny Nose/Eyes GI Upset > 30mins: 1= Stomach Cramp Tremor Observation of Outstretched Hands: 2= Slight Tremor Visible Yawning Observation: 1= 1-2x During Session Anxiety or Irritability: 2=Irritable/Anxious Goose Flesh Skin: 0=Smooth Skin COWS Score: 12 S Progress Note (SOAP) Subjective: Fatigue, Tremors, Body Aches. Objective: PT. A & OX 2 (DISORIENTED ABOUT DAY / DATE). NO ACUTE DISTRESS. PT. DENIES CHEST PAIN. 05/07/17 20:12 Vital Signs Temperature 96.9 F L 05/07/17 17:43 Pulse Rate 67 05/07/17 17:43 Respiratory Rate 18 05/07/17 17:43 Blood Pressure 107/55 05/07/17 17:43 O2 Sat by Pulse Oximetry (%) Laboratory Tests 05/05/17 05/06/17 05/06/17 14:50 06:00 06:00 WBC 5.0 RBC 4.46 Hgb 13.9 D Hct 41.5 MCV 93.0 MCHC 33.4 RDW 13.9 Plt Count 161 MPV 11.9 H D Sodium 139 Potassium 3.9 Chloride 104 Carbon Dioxide 29 Anion Gap 6 L BUN 8 Creatinine 0.8 Creat Clearance w eGFR > 60 Random Glucose 129 H D Calcium 9.5 Total Bilirubin 0.5 D AST 37 D ALT 36 D Alkaline Phosphatase 107 Total Protein 8.4 H D Albumin 3.9 D Urine Color Yellow Urine Appearance Clear Urine pH 7.0 D Ur Specific [place] 1.020 Urine Protein Negative Urine Glucose (UA) Negative Urine Ketones Negative Urine Blood Negative Urine Nitrite Negative Urine Bilirubin Negative Urine Urobilinogen Negative Ur Leukocyte Esterase Negative RPR Titer 05/06/17 06:00 WBC RBC Hgb Hct MCV MCHC RDW Plt Count MPV Sodium Potassium Chloride Carbon Dioxide Anion Gap BUN Creatinine Creat Clearance w eGFR Random Glucose Calcium Total Bilirubin AST ALT Alkaline Phosphatase Total Protein Albumin Urine Color Urine Appearance Urine pH Ur Specific [place] Urine Protein Urine Glucose (UA) Urine Ketones Urine Blood Urine Nitrite Urine Bilirubin Urine Urobilinogen Ur Leukocyte Esterase RPR Titer Nonreactive LABS NOTED. Assessment: 05/07/17 20:13 WITHDRAWAL SYMPTOMS. Plan: CONTINUE DETOX.
[2017-05-07] MEDS: diphenhydrAMINE HCL 50 MG CAPSULE PO PRN (22:22)
[2017-05-07] MEDS: THIAMINE HCL 100 MG TABLET (FP) PO SCH (22:22)
[2017-05-08] MEDS: diazePAM 5 MG TABLET PO PRN (05:58)
[2017-05-08] MEDS ORDERED: CYCLOBENZAPRINE HCL 10 MG TABLET (FP) PO PRN (06:50)
[2017-05-08] MEDS ORDERED: METHADONE HCL 5 MG TABLET (FOR DETOX USE ONLY) PO ONE (10:00)
[2017-05-08] MEDS: LISINOPRIL 10 MG TABLET (FP) PO SCH ×2 (10:18→22:18)
[2017-05-08] MEDS: PRENATAL VITAMINS W/ FOLIC ACID TABLET (FP) PO SCH (10:18)
[2017-05-08] MEDS: NICOTINE 7 MG/24 HOURS TOPICAL PATCH TD SCH (10:18)
[2017-05-08] MEDS ORDERED: BISACODYL 5 MG TABLET.DR (FP) PO ONE (10:26)
--- NOTE | 2017-05-08 15:33 | PN ---
BHS Progress Note (SOAP) Subjective: Nausea, anxious, sweating, interrupted sleep, constipated x 3 days (wants dulcolax) Objective: 05/08/17 15:31 Last Vital Signs Temp Pulse Resp BP Pulse Ox 97.4 F L 84 18 160/92 05/08/17 13:18 05/08/17 13:18 05/08/17 13:18 05/08/17 13:18 Laboratory Tests 05/05/17 05/06/17 05/06/17 14:50 06:00 06:00 WBC 5.0 RBC 4.46 Hgb 13.9 D Hct 41.5 MCV 93.0 MCHC 33.4 RDW 13.9 Plt Count 161 MPV 11.9 H D Sodium 139 Potassium 3.9 Chloride 104 Carbon Dioxide 29 Anion Gap 6 L BUN 8 Creatinine 0.8 Creat Clearance w eGFR > 60 Random Glucose 129 H D Calcium 9.5 Total Bilirubin 0.5 D AST 37 D ALT 36 D Alkaline Phosphatase 107 Total Protein 8.4 H D Albumin 3.9 D Urine Color Yellow Urine Appearance Clear Urine pH 7.0 D Ur Specific [place] 1.020 Urine Protein Negative Urine Glucose (UA) Negative Urine Ketones Negative Urine Blood Negative Urine Nitrite Negative Urine Bilirubin Negative Urine Urobilinogen Negative Ur Leukocyte Esterase Negative RPR Titer 05/06/17 06:00 WBC RBC Hgb Hct MCV MCHC RDW Plt Count MPV Sodium Potassium Chloride Carbon Dioxide Anion Gap BUN Creatinine Creat Clearance w eGFR Random Glucose Calcium Total Bilirubin AST ALT Alkaline Phosphatase Total Protein Albumin Urine Color Urine Appearance Urine pH Ur Specific [place] Urine Protein Urine Glucose (UA) Urine Ketones Urine Blood Urine Nitrite Urine Bilirubin Urine Urobilinogen Ur Leukocyte Esterase RPR Titer Nonreactive Labs noted Assessment: 05/08/17 15:31 Withdrawal symptoms Plan: Continue detox, encouraged to drink lots of water, water pitcher ordered, dulcolax 10mg PO x 1 dose for constipation
[2017-05-08] MEDS: THIAMINE HCL 100 MG TABLET (FP) PO SCH (22:18)
[2017-05-08] MEDS: diphenhydrAMINE HCL 50 MG CAPSULE PO PRN (22:19)
[2017-05-09] MEDS ORDERED: METHADONE HCL 10 MG TABLET (FOR DETOX USE ONLY) PO ONE (10:00)
[2017-05-09] MEDS: NICOTINE 7 MG/24 HOURS TOPICAL PATCH TD SCH (10:21)
[2017-05-09] MEDS: PRENATAL VITAMINS W/ FOLIC ACID TABLET (FP) PO SCH (10:21)
[2017-05-09] MEDS: LISINOPRIL 10 MG TABLET (FP) PO SCH ×2 (10:21→22:31)
--- NOTE | 2017-05-09 14:26 | PN ---
BHS Progress Note (SOAP) Subjective: Sweating,interrupted sleep,restless Objective: 05/09/17 14:24 Vital Signs - 8 hr 05/09/17 05/09/17 05/09/17 06:25 09:45 13:42 Temperature 97.3 F L 97.5 F L 96.8 F L Pulse Rate 97 H 84 80 Respiratory 18 18 18 Rate Blood Pressure 137/88 151/94 150/87 Laboratory Last Values WBC 5.0 K/mm3 (4.0-10.0) 05/06/17 06:00 RBC 4.46 M/mm3 (4.00-5.60) 05/06/17 06:00 Hgb 13.9 GM/dL (11.7-16.9) D 05/06/17 06:00 Hct 41.5 % (35.4-49) 05/06/17 06:00 MCV 93.0 fl (80-96) 05/06/17 06:00 MCHC 33.4 g/dl (32.0-35.9) 05/06/17 06:00 RDW 13.9 % (11.9-15.9) 05/06/17 06:00 Plt Count 161 K/MM3 (134-434) 05/06/17 06:00 MPV 11.9 fl (7.5-11.1) H D 05/06/17 06:00 Sodium 139 mmol/L (136-145) 05/06/17 06:00 Potassium 3.9 mmol/L (3.5-5.1) 05/06/17 06:00 Chloride 104 mmol/L (98-107) 05/06/17 06:00 Carbon Dioxide 29 mmol/L (21-32) 05/06/17 06:00 Anion Gap 6 (8-16) L 05/06/17 06:00 BUN 8 mg/dL (7-18) 05/06/17 06:00 Creatinine 0.8 mg/dL (0.7-1.3) 05/06/17 06:00 Creat Clearance w eGFR > 60 (>60) 05/06/17 06:00 Random Glucose 129 mg/dL (74-106) H D 05/06/17 06:00 Calcium 9.5 mg/dL (8.5-10.1) 05/06/17 06:00 Total Bilirubin 0.5 mg/dL (0.2-1.0) D 05/06/17 06:00 AST 37 U/L (15-37) D 05/06/17 06:00 ALT 36 U/L (12-78) D 05/06/17 06:00 Alkaline Phosphatase 107 U/L (45-117) 05/06/17 06:00 Total Protein 8.4 g/dl (6.4-8.2) H D 05/06/17 06:00 Albumin 3.9 g/dl (3.4-5.0) D 05/06/17 06:00 Urine Color Yellow 05/05/17 14:50 Urine Appearance Clear 05/05/17 14:50 Urine pH 7.0 (5.0-8.0) D 05/05/17 14:50 Ur Specific [place] 1.020 (1.005-1.025) 05/05/17 14:50 Urine Protein Negative (NEGATIVE) 05/05/17 14:50 Urine Glucose (UA) Negative (NEGATIVE) 05/05/17 14:50 Urine Ketones Negative (NEGATIVE) 05/05/17 14:50 Urine Blood Negative (NEGATIVE) 05/05/17 14:50 Urine Nitrite Negative (NEGATIVE) 05/05/17 14:50 Urine Bilirubin Negative (NEGATIVE) 05/05/17 14:50 Urine Urobilinogen Negative E.U./dl (0.2-1.0) 05/05/17 14:50 Ur Leukocyte Esterase Negative (NEGATIVE) 05/05/17 14:50 RPR Titer Nonreactive (NONREACTIVE) 05/06/17 06:00 labs noted Assessment: 05/09/17 14:25 Withdrawal sx. Plan: Continue detox
[2017-05-09] MEDS: diphenhydrAMINE HCL 50 MG CAPSULE PO PRN (22:31)
[2017-05-09] MEDS: THIAMINE HCL 100 MG TABLET (FP) PO SCH (22:31)
[2017-05-10] MEDS ORDERED: METHADONE HCL 5 MG TABLET (FOR DETOX USE ONLY) PO ONE (06:00)
[2017-05-10] MEDS: LISINOPRIL 10 MG TABLET (FP) PO SCH (09:22)
[2017-05-10] MEDS: PRENATAL VITAMINS W/ FOLIC ACID TABLET (FP) PO SCH (09:22)
[2017-05-10] MEDS: NICOTINE 7 MG/24 HOURS TOPICAL PATCH TD SCH (09:23)
[2017-05-10 09:32] VITALS: BP 152/82; PULSE 88; TEMP 97.3
--- NOTE | 2017-05-10 11:10 | DS ---
[facility] Detox Discharge Summary Admission Date: 05/05/17 Discharge Date: 05/10/17 - History Present History: Opioid Dependence Additional Comments: DETOX COMPLETED.ALERT O X 3. NAD. Pertinent Past History: COPD HTN CHRONIC LBP - Physical Exam Results Vital Signs: Vital Signs Temperature 97.3 F L 05/10/17 09:31 Pulse Rate 88 05/10/17 09:31 Respiratory Rate 18 05/10/17 09:31 Blood Pressure 152/82 05/10/17 09:31 O2 Sat by Pulse Oximetry (%) - Treatment Hospital Course: Detox Protocol Followed, Detoxed Safely, Responded well, Discharged Condition Good, Rehab Referral Accepted Patient has Accepted a Rehab Referral to: [facility] - Medication Discharge Medications: Ambulatory Orders Albuterol Sulfate Inhaler - [Ventolin Hfa Inhaler -] 2 inh PO Q4H PRN 03/05/17 Lisinopril [Prinivil] 10 mg PO DAILY #30 mg 03/10/17 Oxycodone HCl 10 mg PO BID 05/05/17 - Diagnosis (1) Nicotine dependence Status: Acute Qualifiers: Nicotine product type: cigarettes Substance use status: in withdrawal Qualified Code(s): F17.213 - Nicotine dependence, cigarettes, with withdrawal (2) Opioid dependence with withdrawal Status: Acute (3) COPD (chronic obstructive pulmonary disease) Status: Chronic Qualifiers: COPD type: emphysema Emphysema type: unspecified Qualified Code( s): J43.9 - Emphysema, unspecified (4) HTN (hypertension) Status: Chronic Qualifiers: Hypertension type: essential hypertension Qualified Code(s): I10 - Essential (primary) hypertension (5) Low back pain Status: Chronic Qualifiers: Chronicity: chronic Sciatica presence: unspecified whether sciatica present - AMA Did Patient Leave Against Medical Advice: No
== END 2017-05-10 09:25 | disposition home or self-care (01) | DRG 773 ==
LOC: YASAS 08:11 → Y3N 11:42
PROVIDERS: ADMIT Internal Medicine; ATTEND Internal Medicine
PROC: HZ2ZZZZ Detoxification Services for Substance Abuse Treatment (ICD-10-PCS; principal; 2017-05-05)
DX: F11.23 Opioid dependence with withdrawal (principal); F17.213 Nicotine dependence, cigarettes, with withdrawal; J43.9 Emphysema, unspecified; I10 Essential (primary) hypertension; M54.5 Low back pain; G89.29 Other chronic pain; B18.2 Chronic viral hepatitis C
CPT/HCPCS: 36415; 80053; 81003; 85027; 86593; 93005; 93010

== ENCOUNTER 2020-07-15 18:05 | Inpatient (IN) | payer OTHER ==
--- NOTE | 2020-07-15 19:19 | HP ---
COWS - Scale Resting Pulse: 1= [place] 81-100 Sweatin=Flushed/Facial Moisture Restless Observation: 0= Sits Still Pupil Size: 0= Normal to Room Light Bone or Joint Aches: 2= Severe Diffuse Aches Runny Nose/ Eye Tearin= None GI Upset > 30mins: 2= Nausea/Diarrhea (nausea, no diarrhea) Tremor Observation: 2= Slight Tremor Visible Yawning Observation: 0= None Anxiety or Irritability: 2=Irritable/Anxious Goose Flesh Skin: 0=Smooth Skin COWS Score: 11 CIWA Score - Admission Criteria [facility]ASAS Guidelines: Admission for Medically Managed Detox: Requires at least one of the followin. CIWA greater than 12 2. Seizures within the past 24 hours 3. Delirium tremens within the past 24 hours 4. Hallucinations within the past 24 hours 5. Acute intervention needed for co occurring medical disorder 6. Acute intervention needed for co occurring psychiatric disorder 7. Severe withdrawal that cannot be handled at a lower level of care (continued vomiting, continued diarrhea, abnormal vital signs) requiring intravenous medication and/or fluids 8. Admitting History and Physical - Smoking History Smoking history: Current every day smoker Have you smoked in the past 12 months: Yes Aproximately how many cigarettes per day: 3 - Alcohol/Substance Use Hx Alcohol Use: Yes ([facility]) Admission [facility] Chief Complaint: Seeking admission to detox from heroin Allergies/Adverse Reactions: Allergies Allergy/AdvReac Type Severity Reaction Status Date / Time No Known Allergies Allergy Verified 07/15/20 20:01 History of Present Illness: 64 years old male with 40 years of heroin dependence is seeking admission to detox. His last admission to [facility] was for the period 05/05/2017-05/10/2017. He reports use of 6 bags of heroin daily. He has medical history of COPD, low back pain, constipation, syphilis (untreated), anemia, hypertension, Hep. C and psych. history of bipolar disorder, schizophrenia and depression. He denies suicidal ideation at this time. He reports blackouts and overdose (last year). He states that he has Narcan at home. He is unemployed, lives his daughter and denies any legal issues. Exam Limitations: No Limitations - Ebola screening Have you traveled outside of the country in the last 21 days: No Have you had contact with anyone from an Ebola affected area: No Do you have a fever: No - Review of Systems Constitutional: Chills, Night Sweats, Changes in sleep EENT: reports: No Symptoms Reported Respiratory: reports: No Symptoms reported Cardiac: reports: No Symptoms Reported GI: reports: Nausea, Poor Fluid Intake, Abdominal cramping : reports: No Symptoms Reported Integumentary: reports: Dryness, Flushing Neuro: reports: Tremors Endocrine: reports: No Symptoms Reported Hematology: reports: No Symptoms Reported Psychiatric: reports: Mood/Affect Appropiate, Depressed Other Systems: Reviewed and Negative Patient History - Patient Medical History Hx Anemia: Yes Hx Asthma: No Hx Chronic Obstructive Pulmonary Disease (COPD): Yes Hx Cancer: No Hx Cardiac Disorders: No Hx Congestive Heart Failure: No Hx Hypertension: Yes Hx Hypercholesterolemia: No Hx Pacemaker: No HX Cerebrovascular Accident: No Hx Seizures: No Hx Dementia: No Hx Diabetes: No Hx Gastrointestinal Disorders: Yes (Constipation) Hx Liver Disease: No Hx Genitourinary Disorders: No Hx Sexually Transmitted Disorders: Yes (DSyphilis (not treated)) Hx Renal Disease (ESRD): No Hx Thyroid Disease: No Hx Human Immunodeficiency Virus (HIV): No Hx Hepatitis C: Yes (Not treated) Hx Depression: Yes Hx Suicide Attempt: No (Denies suicidal ideation at this time) Hx Bipolar Disorder: Yes Hx Schizophrenia: Yes Other Medical History: low back pain - Patient Surgical History Past Surgical History: No Hx Neurologic Surgery: No Hx Cataract Extraction: No Hx Cardiac Surgery: No Hx Lung Surgery: No Hx Abdominal Surgery: No Hx Appendectomy: No Hx Cholecystectomy: No Hx Genitourinary Surgery: No Hx Orthopedic Surgery: No Anesthesia Reaction: No - PPD History Previous Implant?: Yes Documented Results: Negative w/o proof Implanted On Prior R Admission?: Yes Date: 03/07/17 Results: 0mm PPD to be Administered?: Yes - Reproductive History Patient is a Female of Child Bearing Age (11 -55 yrs old): No (male) - Smoking Cessation Smoking history: Current every day smoker Have you smoked in the past 12 months: Yes Aproximately how many cigarettes per day: 3 Hx Chewing Tobacco Use: No Initiated information on smoking cessation: Yes 'Breaking Loose' booklet given: 07/15/20 - Substance & Tx. History Hx Alcohol Use: No Hx Substance Use: Yes Substance Use Type: Heroin Hx Substance Use Treatment: Yes - Substances abused Heroin Substance route: Injection Frequency: Daily Amount used: 6 bags Age of first use: 24 Date of last use: 07/15/20 Admission Physical Exam BHS - Vital Signs Vital Signs: Vital Signs - 24 hr 07/15/20 18:36 Temperature 98.3 F Pulse Rate 95 H Respiratory 18 Rate Blood Pressure 156/86 - Physical General Appearance: Yes: Moderate Distress, Tremorous, Anxious HEENTM: Yes: Within Normal Limits Respiratory: Yes: Lungs Clear, Normal Breath Sounds, No Respiratory Distress Neck: Yes: Within Normal Limits Breast: Yes: Breast Exam Deferred Cardiology: Yes: Regular Rhythm, Regular Rate Abdominal: Yes: Normal Bowel Sounds Genitourinary: Yes: Within Normal Limits Back: Yes: Normal Inspection Musculoskeletal: Yes: Back pain, Muscle Pain Extremities: Yes: Tremors Neurological: Yes: Within Normal Limits, Alert, Normal Mood/Affect Integumentary: Yes: Warm, Track [place] (Left arm) Lymphatic: Yes: Within Normal Limits - Diagnostic (1) COPD (chronic obstructive pulmonary disease) Current Visit: No Status: Chronic Qualifiers: COPD type: emphysema Emphysema type: unspecified Qualified Code(s): J43.9 - Emphysema, unspecified Comment: ? on albuterol; not a candidate for ipratropium (2) Constipation Current Visit: No Status: Chronic Comment: -on senasoide (3) HTN (hypertension) Current Visit: No Status: Chronic Qualifiers: Hypertension type: essential hypertension Qualified Code(s): I10 - Essential (primary) hypertension Comment: -managed by pcp currently on lisinopril 40 daily (4) Hep C w/ coma, chronic Current Visit: No Status: Chronic Comment: First diagnosed in 2017; Treatment naive; hx iv heroin use; VL [id number]; will get genotype; discussed treatemtnt options (5) Low back pain Current Visit: No Status: Chronic Qualifiers: Chronicity: chronic Sciatica presence: unspecified whether sciatica present (6) Nicotine dependence Current Visit: No Status: Chronic Qualifiers: Nicotine product type: cigarettes Substance use status: in withdrawal Qualified Code(s): F17.213 - Nicotine dependence, cigarettes, with withdrawal Comment: -not willing to quit right now; wants to think about it; monitor (7) Opioid dependence with withdrawal Current Visit: No Status: Chronic Comment: -started methadone treatment last week; currently on 70mg daily (8) Syphilis contact, treated Current Visit: No Status: Chronic Comment: treated many years ago Cleared for Admission [facility] - Detox or Rehab [facility] Level of Care: Medically Managed Detox Regimen/Protocol: Methadone Claeared for Rehab Admission: No Breathalyzer - Breathalyzer Breathalyzer: 0 Urine Drug Screen - Test Device Lot number: [id number] Expiration date: 03/05/22 - Control Is test valid?: Yes - Results Drug screen NEGATIVE: No Urine drug screen results: THC-Marijuana, FEN-Fentanyl, MOP-Opiates, MTD- Methadone Inpatient Rehab Admission - Rehab Decision to Admit Inpatient rehab admission?: No
[2020-07-15] MEDS ORDERED: BISMUTH SUBSALICYLATE 524 MG/30 ML UD PO PRN (19:35)
[2020-07-15] MEDS ORDERED: ACETAMINOPHEN 325 MG TABLET (FP) PO PRN (19:35)
[2020-07-15] MEDS ORDERED: MAGNESIUM CITRATE 300 ML BOTTLE PO PRN (19:35)
[2020-07-15] MEDS ORDERED: NICOTINE POLACRILEX 2 MG GUM BUC PRN (19:35)
[2020-07-15] MEDS ORDERED: MAG HYDROX/AL HYDROX/SIMETH 30 ML UNIT-DOSE CUP PO PRN (19:35)
[2020-07-15] MEDS ORDERED: MENTHOL/PHENOL 1 EACH UD MM PRN (19:35)
[2020-07-15] MEDS ORDERED: cloNIDine HCL 0.1 MG TABLET PO PRN (19:35)
[2020-07-15] MEDS ORDERED: MAGNESIUM HYDROX 2400MG/30ML ORAL SUSPENSION 30 ML CUP PO PRN (19:35)
[2020-07-15] MEDS ORDERED: METHADONE HCL 10 MG TABLET (FOR DETOX USE ONLY) PO ONE (20:30)
[2020-07-15] MEDS: MELATONIN 5 MG TABLETS PO SCH (22:32)
[2020-07-15] MEDS: THIAMINE HCL 100 MG TABLET (FP) PO SCH (22:32)
[2020-07-16] MEDS ORDERED: ALBUTEROL SO4 HFA INHALER IH PRN (09:02)
--- NOTE | 2020-07-16 09:24 | EKG ---
Test Reason : Blood Pressure : / mmHG Vent. Rate : 070 BPM Atrial Rate : 070 BPM P-R Int : 150 ms QRS Dur : 090 ms QT Int : 406 ms P-R-T Axes : 052 046 053 degrees QTc Int : 438 ms SINUS RHYTHM WITH SINUS ARRHYTHMIA WITH OCCASIONAL PREMATURE VENTRICULAR COMPLEXES OTHERWISE NORMAL ECG WHEN COMPARED WITH ECG OF 05-MAY-2017 12:04, PREMATURE VENTRICULAR COMPLEXES ARE NOW PRESENT MINIMAL CRITERIA FOR SEPTAL INFARCT ARE NO LONGER PRESENT T WAVE AMPLITUDE HAS DECREASED IN ANTEROLATERAL LEADS Confirmed by Dionicio Orellana MD ([id number]) on 07/16/2020 9:23:38 AM Referred By: Confirmed By:Dionicio Orellana MD
[2020-07-16] MEDS ORDERED: METHADONE HCL 10 MG TABLET (FOR DETOX USE ONLY) ONE (09:33)
[2020-07-16] MEDS ORDERED: METHADONE HCL 5 MG TABLET (FOR DETOX USE ONLY) ONE (09:33)
[2020-07-16] MEDS ORDERED: METHADONE (DETOX) 20 MG, METHADONE (DETOX) 5 MG PO ONE (10:00)
[2020-07-16] MEDS: hydrOXYzine PAMOATE 25 MG CAPSULE (FP) PO PRN ×2 (10:31→22:12)
[2020-07-16] MEDS: NICOTINE 14 MG/24 HOURS TOPICAL PATCH TD SCH (10:32)
[2020-07-16] MEDS: PRENATAL VITAMINS W/ FOLIC ACID TABLET (FP) PO SCH (10:32)
[2020-07-16] MEDS: IBUPROFEN 400 MG TABLET (FP) PO PRN (10:34)
[2020-07-16] MEDS: LISINOPRIL 10 MG TABLET (FP) PO SCH (10:34)
[2020-07-16] MEDS ORDERED: PNEUMOC 13-VAL CONJ-DIP CRM/PF 0.5 ML DISP.SYRIN IM ONE (12:00)
[2020-07-16 12:23] LABS: HEMATOCRIT 36.4 % (35.4-49); HEMOGLOBIN 12.3 GM/dL (11.7-16.9); MCH 30.4 pg (25.7-33.7); MCHC 33.8 g/dl (32.0-35.9); MEAN CELL VOLUME 90.1 fl (80-96); PLATELET COUNT 172 K/MM3 (134-434); RBC 4.04 M/mm3 (4.00-5.60); RDW 13.9 % (11.9-15.9); WHITE BLOOD COUNT 4.8 K/mm3 (4.0-10.0)
[2020-07-16 12:46] LABS: ALBUMIN 3.1 g/dl (3.4-5.0); BILIRUBIN,TOTAL 0.6 mg/dL (0.2-1); BLOOD UREA NITROGEN 12.1 mg/dL (7-18); CALCIUM 8.7 mg/dL (8.5-10.1); CREATININE 0.8 mg/dL (0.55-1.3); TOT PROT 7.1 g/dl (6.4-8.2)
--- NOTE | 2020-07-16 14:26 | PN ---
BHS COWS - Scale Resting Pulse: 0= [place] 80 or Below Sweatin= No chills or Flushing Restless Observation: 0= Sits Still Pupil Size: 1= Pupils >than Normal Bone or Joint Aches: 2= Severe Diffuse Aches Runny Nose/ Eye Tearin= Nasal Congestion GI Upset > 30mins: 1= Stomach Cramp Tremor Observation of Outstretched Hands: 2= Slight Tremor Visible Yawning Observation: 1= 1-2x During Session Anxiety or Irritability: 2=Irritable/Anxious Goose Flesh Skin: 0=Smooth Skin COWS Score: 10 BHS Progress Note (SOAP) Subjective: alert,irritable,anxious,interrupted sleep,pain in the body and back,tremor Objective: 07/16/20 14:24 Vital Signs Temperature 97.1 F L 07/16/20 12:42 Pulse Rate 65 07/16/20 12:42 Respiratory Rate 16 07/16/20 12:42 Blood Pressure 148/69 07/16/20 12:42 O2 Sat by Pulse Oximetry (%) 98 07/16/20 12:42 Assessment: 07/16/20 14:25 withdrawal symptom Plan: continued detox methadone regimen,close monitoring of vital signs
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
--- NOTE | 2020-07-16 14:52 | EKG ---
Test Reason : Blood Pressure : / mmHG Vent. Rate : 061 BPM Atrial Rate : 061 BPM P-R Int : 162 ms QRS Dur : 078 ms QT Int : 430 ms P-R-T Axes : 051 053 053 degrees QTc Int : 432 ms NORMAL SINUS RHYTHM SEPTAL INFARCT , AGE UNDETERMINED ABNORMAL ECG WHEN COMPARED WITH ECG OF 15-JUL-2020 19:41, PREMATURE VENTRICULAR COMPLEXES ARE NO LONGER PRESENT SEPTAL INFARCT IS NOW PRESENT Confirmed by Dionicio Orellana MD ([id number]) on 07/16/2020 2:51:59 PM Referred By: LYDIA CORDON Confirmed By:Dionicio Orellana MD
[2020-07-16] MEDS: hydrALAZINE HCL 10 MG TABLET PO SCH ×2 (15:33→22:10)
[2020-07-16] MEDS: THIAMINE HCL 100 MG TABLET (FP) PO SCH (22:10)
[2020-07-16] MEDS: MELATONIN 5 MG TABLETS PO SCH (22:10)
[2020-07-16] MEDS: DOCUSATE SODIUM 100 MG CAPSULE (FP) PO SCH (22:10)
[2020-07-17] MEDS: hydrALAZINE HCL 10 MG TABLET PO SCH ×3 (06:14→22:07)
[2020-07-17] MEDS: ACETAMINOPHEN 325 MG TABLET (FP) PO PRN ×2 (06:15→13:45)
[2020-07-17] MEDS: METHOCARBAMOL 500 MG TABLET PO PRN ×3 (06:15→22:08)
[2020-07-17] MEDS ORDERED: METHADONE HCL 10 MG TABLET (FOR DETOX USE ONLY) PO ONE (10:00)
[2020-07-17] MEDS: hydrOXYzine PAMOATE 25 MG CAPSULE (FP) PO PRN ×2 (10:38→13:43)
[2020-07-17] MEDS: PRENATAL VITAMINS W/ FOLIC ACID TABLET (FP) PO SCH (10:38)
[2020-07-17] MEDS: ESCITALOPRAM OXALATE 10 MG TABLET PO SCH (10:38)
[2020-07-17] MEDS: LISINOPRIL 10 MG TABLET (FP) PO SCH (10:38)
[2020-07-17] MEDS: IBUPROFEN 400 MG TABLET (FP) PO PRN (10:39)
[2020-07-17] MEDS: NICOTINE 14 MG/24 HOURS TOPICAL PATCH TD SCH (10:39)
[2020-07-17] MEDS ORDERED: PENICILLIN G BENZATHINE 2,400,000 UNIT/4 ML PFS IM ONE (12:30)
[2020-07-17] MEDS ORDERED: HYDROCORTISONE 0.5% TOPICAL CREAM 30 GM TUBE TP PRN (16:40)
--- NOTE | 2020-07-17 17:17 | PN ---
S COWS - Scale Resting Pulse: 0= [place] 80 or Below Sweatin= No chills or Flushing Restless Observation: 1= Difficult to Sit Still Pupil Size: 1= Pupils >than Normal Bone or Joint Aches: 2= Severe Diffuse Aches Runny Nose/ Eye Tearin= Nasal Congestion GI Upset > 30mins: 1= Stomach Cramp Tremor Observation of Outstretched Hands: 2= Slight Tremor Visible Yawning Observation: 1= 1-2x During Session Anxiety or Irritability: 2=Irritable/Anxious Goose Flesh Skin: 0=Smooth Skin COWS Score: 11 [facility] Progress Note (SOAP) Subjective: alert,irritable,anxious,interrupted sleep,pain in the body and back Objective: 07/17/20 17:19 Vital Signs Temperature 97.1 F L 07/17/20 12:41 Pulse Rate 63 07/17/20 12:41 Respiratory Rate 18 07/17/20 12:41 Blood Pressure 163/75 07/17/20 12:41 O2 Sat by Pulse Oximetry (%) 99 07/17/20 12:41 Laboratory Last Values WBC 4.8 K/mm3 (4.0-10.0) 07/16/20 08:30 RBC 4.04 M/mm3 (4.00-5.60) 07/16/20 08:30 Hgb 12.3 GM/dL (11.7-16.9) 07/16/20 08:30 Hct 36.4 % (35.4-49) 07/16/20 08:30 MCV 90.1 fl (80-96) 07/16/20 08:30 MCH 30.4 pg (25.7-33.7) 07/16/20 08:30 MCHC 33.8 g/dl (32.0-35.9) 07/16/20 08:30 RDW 13.9 % (11.9-15.9) 07/16/20 08:30 Plt Count 172 K/MM3 (134-434) 07/16/20 08:30 MPV 11.0 fl (7.5-11.1) 07/16/20 08:30 Sodium 140 mmol/L (136-145) 07/16/20 08:30 Potassium 4.0 mmol/L (3.5-5.1) 07/16/20 08:30 Chloride 107 mmol/L (98-107) 07/16/20 08:30 Carbon Dioxide 27 mmol/L (21-32) 07/16/20 08:30 Anion Gap 6 MMOL/L (8-16) L 07/16/20 08:30 BUN 12.1 mg/dL (7-18) 07/16/20 08:30 Creatinine 0.8 mg/dL (0.55-1.3) 07/16/20 08:30 Est GFR (CKD-EPI)AfAm 108.65 07/16/20 08:30 Est GFR (CKD-EPI)NonAf 93.74 07/16/20 08:30 Random Glucose 101 mg/dL (74-106) 07/16/20 08:30 Calcium 8.7 mg/dL (8.5-10.1) 07/16/20 08:30 Total Bilirubin 0.6 mg/dL (0.2-1) 07/16/20 08:30 AST 43 U/L (15-37) H 07/16/20 08:30 ALT 31 U/L (13-61) 07/16/20 08:30 Alkaline Phosphatase 113 U/L (45-117) 07/16/20 08:30 Total Protein 7.1 g/dl (6.4-8.2) 07/16/20 08:30 Albumin 3.1 g/dl (3.4-5.0) L 07/16/20 08:30 Syphilis Serology Reactive (NONREACTIVE) A* 07/16/20 08:30 RPR Titer Reactive 1:1 (NONREACTIVE) H 07/16/20 08:30 COVID-19 ([facility]) Not detected (Not Detected) 07/15/20 20:00 patient never been treated for syphilis before bicillin 2.4 million unit ordered,patient also will get Bicillin 2.4 million units on 07/24/20 and 07/31/20 by medical provider Assessment: 07/17/20 17:24 withdrawal symptom Plan: continue detox methadone regimen,bp monitoring
[2020-07-17] MEDS: DOCUSATE SODIUM 100 MG CAPSULE (FP) PO SCH (22:07)
[2020-07-17] MEDS: THIAMINE HCL 100 MG TABLET (FP) PO SCH (22:07)
[2020-07-17] MEDS: MELATONIN 5 MG TABLETS PO SCH (22:07)
[2020-07-18] MEDS: hydrALAZINE HCL 10 MG TABLET PO SCH ×3 (07:53→22:30)
[2020-07-18] MEDS ORDERED: METHADONE HCL 10 MG TABLET (FOR DETOX USE ONLY) ONE (09:50)
[2020-07-18] MEDS ORDERED: METHADONE HCL 5 MG TABLET (FOR DETOX USE ONLY) ONE (09:50)
[2020-07-18] MEDS ORDERED: METHADONE (DETOX) 10 MG, METHADONE (DETOX) 5 MG PO ONE (10:00)
[2020-07-18] MEDS: LISINOPRIL 10 MG TABLET (FP) PO SCH (10:43)
[2020-07-18] MEDS: NICOTINE 14 MG/24 HOURS TOPICAL PATCH TD SCH (10:44)
[2020-07-18] MEDS: PRENATAL VITAMINS W/ FOLIC ACID TABLET (FP) PO SCH (10:44)
[2020-07-18] MEDS: ACETAMINOPHEN 325 MG TABLET (FP) PO PRN (10:46)
[2020-07-18] MEDS: METHOCARBAMOL 500 MG TABLET PO PRN ×2 (10:47→22:34)
[2020-07-18] MEDS: ESCITALOPRAM OXALATE 10 MG TABLET PO SCH (10:47)
--- NOTE | 2020-07-18 14:03 | PN ---
[facility] COWS - Scale Resting Pulse: 0= [place] 80 or Below Sweatin= No chills or Flushing Restless Observation: 0= Sits Still Pupil Size: 0= Normal to Room Light Bone or Joint Aches: 2= Severe Diffuse Aches Runny Nose/ Eye Tearin= Nasal Congestion GI Upset > 30mins: 1= Stomach Cramp Tremor Observation of Outstretched Hands: 2= Slight Tremor Visible Yawning Observation: 0= None Anxiety or Irritability: 2=Irritable/Anxious Goose Flesh Skin: 0=Smooth Skin COWS Score: 8 [facility] Progress Note (SOAP) Subjective: alert,irritable,anxious,interrupted sleep,tremor,pain in the back Objective: 07/18/20 16:16 Vital Signs Temperature 97.5 F L 07/18/20 12:45 Pulse Rate 77 07/18/20 12:45 Respiratory Rate 18 07/18/20 12:45 Blood Pressure 122/69 07/18/20 12:45 O2 Sat by Pulse Oximetry (%) 100 07/18/20 12:45 Assessment: 07/18/20 16:16 withdrawal symptom Plan: continue detox methadone regimen
[2020-07-18] MEDS: THIAMINE HCL 100 MG TABLET (FP) PO SCH (22:30)
[2020-07-18] MEDS: MELATONIN 5 MG TABLETS PO SCH (22:30)
[2020-07-18] MEDS: DOCUSATE SODIUM 100 MG CAPSULE (FP) PO SCH (22:30)
[2020-07-18] MEDS: IBUPROFEN 400 MG TABLET (FP) PO PRN (22:34)
[2020-07-18] MEDS: hydrOXYzine PAMOATE 25 MG CAPSULE (FP) PO PRN (22:35)
[2020-07-19] MEDS: hydrALAZINE HCL 10 MG TABLET PO SCH ×3 (05:32→22:31)
--- NOTE | 2020-07-19 09:52 | PN ---
[facility] COWS - Scale Resting Pulse: 0= [place] 80 or Below Sweatin= No chills or Flushing Restless Observation: 0= Sits Still Pupil Size: 0= Normal to Room Light Bone or Joint Aches: 2= Severe Diffuse Aches Runny Nose/ Eye Tearin= None GI Upset > 30mins: 0= None Tremor Observation of Outstretched Hands: 0= None Yawning Observation: 0= None Anxiety or Irritability: 2=Irritable/Anxious Goose Flesh Skin: 0=Smooth Skin COWS Score: 4 [facility] Progress Note (SOAP) Subjective: c/o mild withdrawal symptoms. Objective: Vital Signs 07/19/20 07/19/20 06:36 09:11 Temperature 97.9 F 98.6 F Pulse Rate 60 68 Respiratory 18 19 Rate Blood Pressure 140/81 133/72 O2 Sat by Pulse 99 97 Oximetry (%) Laboratory Last Values WBC 4.8 K/mm3 (4.0-10.0) 07/16/20 08:30 RBC 4.04 M/mm3 (4.00-5.60) 07/16/20 08:30 Hgb 12.3 GM/dL (11.7-16.9) 07/16/20 08:30 Hct 36.4 % (35.4-49) 07/16/20 08:30 MCV 90.1 fl (80-96) 07/16/20 08:30 MCH 30.4 pg (25.7-33.7) 07/16/20 08:30 MCHC 33.8 g/dl (32.0-35.9) 07/16/20 08:30 RDW 13.9 % (11.9-15.9) 07/16/20 08:30 Plt Count 172 K/MM3 (134-434) 07/16/20 08:30 MPV 11.0 fl (7.5-11.1) 07/16/20 08:30 Sodium 140 mmol/L (136-145) 07/16/20 08:30 Potassium 4.0 mmol/L (3.5-5.1) 07/16/20 08:30 Chloride 107 mmol/L (98-107) 07/16/20 08:30 Carbon Dioxide 27 mmol/L (21-32) 07/16/20 08:30 Anion Gap 6 MMOL/L (8-16) L 07/16/20 08:30 BUN 12.1 mg/dL (7-18) 07/16/20 08:30 Creatinine 0.8 mg/dL (0.55-1.3) 07/16/20 08:30 Est GFR (CKD-EPI)AfAm 108.65 07/16/20 08:30 Est GFR (CKD-EPI)NonAf 93.74 07/16/20 08:30 Random Glucose 101 mg/dL (74-106) 07/16/20 08:30 Calcium 8.7 mg/dL (8.5-10.1) 07/16/20 08:30 Total Bilirubin 0.6 mg/dL (0.2-1) 07/16/20 08:30 AST 43 U/L (15-37) H 07/16/20 08:30 ALT 31 U/L (13-61) 07/16/20 08:30 Alkaline Phosphatase 113 U/L (45-117) 07/16/20 08:30 Total Protein 7.1 g/dl (6.4-8.2) 07/16/20 08:30 Albumin 3.1 g/dl (3.4-5.0) L 07/16/20 08:30 Syphilis Serology Reactive (NONREACTIVE) A* 07/16/20 08:30 RPR Titer Reactive 1:1 (NONREACTIVE) H 07/16/20 08:30 COVID-19 ([facility]) Not detected (Not Detected) 07/15/20 20:00 Labs noted. Assessment: 07/19/20 09:51 AOX3, in no acute respiratory distress. Full ROM, ambulating in the unit. Mild Withdrawal symptoms. For d/c tomorrow. Plan: continue detox. D/C in AM.
[2020-07-19] MEDS ORDERED: METHADONE HCL 10 MG TABLET (FOR DETOX USE ONLY) PO ONE (10:00)
[2020-07-19] MEDS: PRENATAL VITAMINS W/ FOLIC ACID TABLET (FP) PO SCH (10:13)
[2020-07-19] MEDS: ESCITALOPRAM OXALATE 10 MG TABLET PO SCH (10:13)
[2020-07-19] MEDS: NICOTINE 14 MG/24 HOURS TOPICAL PATCH TD SCH (10:14)
[2020-07-19] MEDS: LISINOPRIL 10 MG TABLET (FP) PO SCH (10:14)
[2020-07-19] MEDS: IBUPROFEN 400 MG TABLET (FP) PO PRN (10:16)
[2020-07-19] MEDS: THIAMINE HCL 100 MG TABLET (FP) PO SCH (22:31)
[2020-07-19] MEDS: MELATONIN 5 MG TABLETS PO SCH (22:31)
[2020-07-19] MEDS: DOCUSATE SODIUM 100 MG CAPSULE (FP) PO SCH (22:31)
[2020-07-19] MEDS: METHOCARBAMOL 500 MG TABLET PO PRN (22:32)
[2020-07-20] MEDS: hydrALAZINE HCL 10 MG TABLET PO SCH (05:25)
[2020-07-20] MEDS ORDERED: METHADONE HCL 5 MG TABLET (FOR DETOX USE ONLY) PO ONE (06:00)
[2020-07-20 06:49] VITALS: BP 145/80; PULSE 68; TEMP 97.8
--- NOTE | 2020-07-20 08:28 | DS ---
[facility] Detox Discharge Summary Admission Date: 07/15/20 Discharge Date: 07/20/20 - History Present History: Opioid Dependence Additional Comments: 64 years old male admitted on 07/15/20 for opiate withdrawal sx management treated with methadone detox regiment seen by psychiatrist sanaz goins mr valenzuela has completed the methadone regiment and is tolerated well General Appearance: Yes: no Distress, mild Tremorous, less Anxious HEENTM: Yes: Within Normal Limits Respiratory: Yes: Lungs Clear, Normal Breath Sounds, No Respiratory Distress Neck: Yes: Within Normal Limits Breast: Yes: Breast Exam Deferred Cardiology: Yes: Regular Rhythm, Regular Rate Abdominal: Yes: Normal Bowel Sounds Genitourinary: Yes: Within Normal Limits Back: Yes: Normal Inspection Musculoskeletal: Yes: chronic Back pain, mild Muscle Pain Extremities: Yes: mild Tremors Neurological: Yes: Within Normal Limits, Alert, Normal Mood/Affect Integumentary: Yes: Warm, Track Santiago (Left arm) Lymphatic: Yes: Within Normal Limits Pertinent Past History: time for discharge 45 minutes transferred order set from detox to rehab - Physical Exam Results Vital Signs: Vital Signs Temperature 97.8 F 07/20/20 05:20 Pulse Rate 68 07/20/20 05:20 Respiratory Rate 16 07/20/20 05:20 Blood Pressure 145/80 07/20/20 05:20 O2 Sat by Pulse Oximetry (%) 95 07/20/20 05:20 Pertinent Admission Physical Exam Findings: opiate withdrawal Vital Signs - 24 hr 07/19/20 07/19/20 07/19/20 14:20 16:53 20:30 Temperature 97.3 F L 97.3 F L 97.3 F L Pulse Rate 81 70 64 Respiratory 18 18 16 Rate Blood Pressure 148/77 151/75 169/85 O2 Sat by Pulse 99 99 Oximetry (%) 07/20/20 05:20 Temperature 97.8 F Pulse Rate 68 Respiratory 16 Rate Blood Pressure 145/80 O2 Sat by Pulse 95 Oximetry (%) Laboratory Tests 07/15/20 07/16/20 07/16/20 20:00 08:30 08:30 WBC 4.8 RBC 4.04 Hgb 12.3 Hct 36.4 MCV 90.1 MCH 30.4 MCHC 33.8 RDW 13.9 Plt Count 172 MPV 11.0 Sodium Potassium Chloride Carbon Dioxide Anion Gap BUN Creatinine Est GFR (CKD-EPI)AfAm Est GFR (CKD-EPI)NonAf Random Glucose Calcium Total Bilirubin AST ALT Alkaline Phosphatase Total Protein Albumin Syphilis Serology Reactive A* RPR Titer COVID-19 ([facility]) Not detected 07/16/20 07/16/20 08:30 08:30 WBC RBC Hgb Hct MCV MCH MCHC RDW Plt Count MPV Sodium 140 Potassium 4.0 Chloride 107 Carbon Dioxide 27 Anion Gap 6 L BUN 12.1 Creatinine 0.8 Est GFR (CKD-EPI)AfAm 108.65 Est GFR (CKD-EPI)NonAf 93.74 Random Glucose 101 Calcium 8.7 Total Bilirubin 0.6 AST 43 H ALT 31 Alkaline Phosphatase 113 Total Protein 7.1 Albumin 3.1 L Syphilis Serology RPR Titer Reactive 1:1 H COVID-19 ([facility]) received one dose of penicillin IM On 07/17/20 next dose on 07/24/20 and last dose on 07/31/20 dosages ordered in the order set of rehab - Treatment Hospital Course: Detox Protocol Followed, Detoxed Safely, Responded well, Discharged Condition Good, Rehab Referral Accepted Patient has Accepted [facility] Referral [facility]: [facility] - Medication Discharge Medications: Ambulatory Orders Albuterol Sulfate Inhaler - [Ventolin Hfa Inhaler -] 2 inh PO Q4H PRN 03/05/17 Lisinopril [Prinivil] 20 mg PO DAILY 09/14/17 Sennosides/Docusate Sodium [Senna Plus 8.6-50 mg Softgel] 1 each PO HS #30 capsule 06/23/20 Benazepril HCl 40 mg PO DAILY 07/15/20 Docusate Sodium [Docusate 100 mg] 2 cap PO HS 07/15/20 Escitalopram Oxalate [Lexapro -] 10 mg PO DAILY 07/15/20 Hydralazine HCl 20 mg PO TID 07/15/20 Ibuprofen 600 mg PO TID PRN 07/15/20 Mirtazapine [Remeron -] 15 mg PO DAILY 07/15/20 Hydrocortisone 1% Ointment [Hytone 1% Ointment -] 1 applic TP BID 07/17/20 - Diagnosis (1) Opioid dependence with withdrawal Status: Acute (2) Constipation Status: Chronic Qualifiers: Constipation type: drug induced constipation Qualified Code(s): K59.03 - Drug induced constipation (3) HTN (hypertension) Status: Chronic Qualifiers: Hypertension type: essential hypertension Qualified Code(s): I10 - Essential (primary) hypertension (4) Hep C w/ coma, chronic Status: Chronic (5) Nicotine dependence Status: Acute Qualifiers: Nicotine product type: cigarettes Substance use status: in withdrawal Qualified Code(s): F17.213 - Nicotine dependence, cigarettes, with withdrawal (6) Syphilis contact, treated Status: Chronic - AMA Did Patient Leave Against Medical Advice: No COWS (PN) - Opiate Withdrawal Resting Pulse: 0= [place] 80 or Below Sweatin= No chills or Flushing Restless Observation: 0= Sits Still Pupil Size: 0= Normal to Room Light Bone or Joint Aches: 0= None Runny Nose/ Eye Tearin= None GI Upset > 30mins: 1= Stomach Cramp Tremor Observation of Outstretched Hands: 0= None Yawning Observation: 0= None Anxiety or Irritability: 1=Feels Anxious/Irritable Goose Flesh Skin: 0=Smooth Skin COWS Score: 2
== END 2020-07-20 08:53 | disposition home or self-care (01) | DRG 897 ==
LOC: YASAS 18:05 → Y3N 20:15
PROVIDERS: ADMIT Allergy & Immunology; ATTEND Allergy & Immunology
PROC: HZ2ZZZZ Detoxification Services for Substance Abuse Treatment (ICD-10-PCS; principal; 2020-07-15)
DX: F11.23 Opioid dependence with withdrawal (principal); F17.213 Nicotine dependence, cigarettes, with withdrawal; F19.24 Other psychoactive substance dependence with psychoactive substance-induced mood disorder; F31.9 Bipolar disorder, unspecified; F20.9 Schizophrenia, unspecified; F43.10 Post-traumatic stress disorder, unspecified; D64.9 Anemia, unspecified; I10 Essential (primary) hypertension; J43.9 Emphysema, unspecified; K59.03 Drug induced constipation; M54.5 Low back pain; B18.2 Chronic viral hepatitis C; Z20.2 Contact with and (suspected) exposure to infections with a predominantly sexual mode of transmission; Z56.0 Unemployment, unspecified
CPT/HCPCS: 36415; 80053; 85027; 86593; 86780; 90670; 93005; 93010; J0735; U0003